=== PATIENT | male | born 1980 | race Caucasian/White ===

== ENCOUNTER 2016-05-03 02:30 | Inpatient (IN) ==
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
[2016-05-03 03:07] LABS: Bilirubin,Urine Negative (Negative); Blood,Urine Negative (Negative); Clarity,Urine Clear (Clear); Color,Urine Yellow (Yellow); Glucose,Urine (UA) Normal (Normal); Ketones,Urine Negative (Negative); Leukocyte Esterase,Urine Negative (Negative); Nitrite,Urine Negative (Negative); Protein,Urine Negative (Neg-Trace); Specific Gravity,Urine 1.008 (1.010-1.025); Urobilinogen,Urine Normal (Normal)
[2016-05-03 03:13] LABS: Amphetamine Screen,Urine Negative ng/mL (Cutoff=1000); Barbiturate Screen,Urine Negative ng/mL (Cutoff=200); Benzodiazepines Screen,Urine Positive ng/mL (Cutoff=200); Cannabinoid Screen,Urine Positive ng/mL (Cutoff = 50); Cocaine Screen,Urine Negative ng/mL (Cutoff= 300); Opiate Screen,Urine Negative ng/mL (Cutoff=300); Phencyclidine Screen,Urine Negative ng/mL (Cutoff=25)
[2016-05-03 03:28] LABS: Basophils # 0.1 K/mcL (0.0-0.2); Basophils % 0.6 %; Eosinophils # 0.5 K/mcL (0.0-0.6); Eosinophils % 4.3 %; Hematocrit 43.8 % (37.5-50.1); Hemoglobin 14.8 g/dL (12.9-16.9); Immature Granulocytes % 0.6 % (0-4); Lymphocytes # 3.3 K/mcL (0.6-4.6); Lymphocytes % 30.2 %; Mean Corpuscular HGB Conc 33.8 g/dL (31.6-35.5); Mean Corpuscular Hemoglobin 29.4 pg (28.0-33.3); Mean Corpuscular Volume 86.9 fL (83.0-100.0); Mean Platelet Volume 10.5 fL (9.4-12.4); Monocytes # 0.7 K/mcL (0.0-1.3); Monocytes % 6.8 %; Neutrophils # 6.2 K/mcL (1.6-8.9); Platelet Count 216 K/mcL (140-400); Red Blood Count 5.04 M/mcL (4.19-5.50); Red Cell Distribution Width 12.6 % (11.5-14.5); Segmented Neutrophils % 57.5 %
[2016-05-03 03:44] LABS: Acetaminophen < 1.0 mcg/mL (10-30); BUN/Creatinine Ratio 9 (6-26); Blood Urea Nitrogen 6 mg/dL (8-26); Calcium 8.9 mg/dL (8.6-10.8); Carbon Dioxide 24 mEq/L (19-29); Chloride 109 mEq/L (98-109); Ethanol < 10 mg/dL (0-10); Glucose 83 mg/dL (70-99); Osmolality,Calculated 291 (280-300); Potassium 3.8 mEq/L (3.5-4.5); Salicylate < 5.0 mg/dL (15-30); Sodium 142 mEq/L (136-145); eGFR For African Americans > 60 (> 60); eGFR For Non-African Americans > 60 (> 60)
[2016-05-03 04:03] LABS: Thyroid Stimulating Hormone 1.046 mcIU/mL (0.350-4.840)
[2016-05-03] MEDS ORDERED: Mag Hydrox/Al Hydrox/Simeth 30 ML UDC PO PRN (05:49)
[2016-05-03] MEDS ORDERED: hydrOXYzine pamoate 25 MG CAPSULE PO PRN (05:49)
[2016-05-03] MEDS ORDERED: *HR* LORazepam 2 MG/ML VIAL IM PRN (05:49)
[2016-05-03] MEDS ORDERED: Haloperidol Lactate 5 MG/ML VIAL IM PRN (05:49)
[2016-05-03] MEDS ORDERED: *HR* LORazepam 1 MG TABLET PO PRN (05:49)
[2016-05-03] MEDS ORDERED: MOM Conc 10 ML UD.LIQ PO PRN (05:49)
[2016-05-03] MEDS ORDERED: clonazePAM 0.5 MG TABLET PO PRN (05:52)
[2016-05-03] MEDS: Nicotine 21 MG PATCH.TD24 TD SCH (10:07)
[2016-05-03] MEDS: Gabapentin 300 MG CAPSULE PO SCH ×3 (10:14→21:25)
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
--- NOTE | 2016-05-03 13:07 | Electrocardiograph Report ---
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
[2016-05-04] MEDS: traZODone 50 MG TABLET PO PRN ×2 (01:10→21:20)
[2016-05-04] MEDS: Gabapentin 300 MG CAPSULE PO SCH ×3 (08:41→20:44)
[2016-05-04] MEDS: Nicotine 21 MG PATCH.TD24 TD SCH (08:42)
--- NOTE | 2016-05-04 12:47 | Psychiatry Progress Note ---
Date of Encounter: 05/04/16 Time of Encounter: 12:30 Subjective Interval history: Patient is here for follow-up. Staff report he denies suicidal ideation he participated in some groups but other times he self isolates in his room. He tolerated the new medications Cymbalta and denies any side effects and motivated to continue to take it after discharge. He denies any problem with sleep. The matter with public health social worker to review discharge planning. He is future oriented and optimistic. Review of Systems Psychiatric: Reports: depression, anxiety. Denies: suicidal ideation, visual hallucinations Objective: Exam Patient orientation: Yes Person, Yes Time, Yes Place Level of alertness: Alert Patient appearance: Appropriate, Disheveled Behavior: cooperative, nervous Psychomotor activity: Normal Eye contact: Fleeting Contact Mood description: Euthymic/stable, Anxious, Irritable Affect description: congruent with mood, full range, anxious Speech pattern: Normal rate, Normal rhythm, Normal tone, Appropriate Speech volume: Normal Thought process: Linear, Goal Oriented Thought content: No Suicidal ideation, No Homicidal ideation, No Overt delusions Perceptual disturbances: No Auditory hallucinations, No Visual hallucinations Judgment: Limited Insight: Partial Results - Vital Signs Vital Signs: Temp Pulse Resp BP Pulse Ox 97.6 F 72 16 99/69 95 05/04/16 08:43 05/04/16 08:43 05/04/16 08:43 05/04/16 08:43 05/03/16 02:32 Assessment and Plan (1) Mood disorder Current visit: Yes Status: Acute Plan: Continue hospitalization, Close observation, Suicide Precautions per unit protocol, Encourage participation in unit milieu, Group Therapy, Monitor sleep, Monitor appetite Risks, benefits, side effects, alternatives discussed w/pt: Yes Patient agreeable to treatment: Yes (2) Mild tetrahydrocannabinol (THC) abuse Current visit: Yes Status: Acute Plan: Continue hospitalization, Close observation, Suicide Precautions per unit protocol, Encourage participation in unit milieu, Group Therapy, Monitor sleep, Monitor appetite Risks, benefits, side effects, alternatives discussed w/pt: Yes Patient agreeable to treatment: Yes Consult Discharge Plan - Plan Referrals: NO,PCP [Primary Care Provider] -
[2016-05-05 08:31] VITALS: BP 108/69
[2016-05-05] MEDS: Gabapentin 300 MG CAPSULE PO SCH (08:54)
[2016-05-05] MEDS: Nicotine 21 MG PATCH.TD24 TD SCH (08:55)
--- NOTE | 2016-05-05 11:01 | Discharge Summary ---
Date of Encounter: 05/05/16 Time of Encounter: 10:59 Diagnosis - Discharge Diagnosis (1) Mood disorder Status: Acute (2) Mild tetrahydrocannabinol (THC) abuse Status: Acute Medications - Discharge Medications Prescriptions: Duloxetine [Cymbalta] 30 mg PO BID #60 capsule. Ibuprofen [Motrin] 600 mg PO Q8HR PRN #20 tablet 12/03/14 [Rx] ClonazePAM [Klonopin] 0.5 mg PO DAILY 05/03/16 [History] Gabapentin [Neurontin] 600 mg PO TID 05/03/16 [History] Sod Chloride/Hola/Mo/Pet,Wh [Lubri-Skin Lotion] 1 appl TP 4-6XD PRN 05/03/16 [ History] Duloxetine [Cymbalta] 30 mg PO BID #60 capsule. 05/05/16 [Rx] Allergies No Known Allergies Allergy (Verified 10/16/15 01:20) Provider Date of admission: 05/03/16 05:32 Primary care physician: PCP NO Discharging clinician: Varun Alberts Assessment and Plan - Patient/Caregiver Discharge Instructions Activity: resume usual activities as tolerated Diet: regular diet - Follow up Plan Follow up with: [facility] [Outside] (Office staff will contact you directly to schedule your intake appointment for counseling and case management services. You will see psychiatric prescriber, Courtney Warner, on 06/09/2016 at 10:00am. Please arrive 15 minutes early for this appointment to complete paperwork. You may contact the office regularly to check for cancellations that may allow you to be seen sooner by the psychiatric prescriber.) Functional capacity at discharge: independent ambulation Overall status at discharge: Stable Disposition: Home, Self-Care Hospital Course Hospital course: Mr. Hopper is a 35 year old male admitted from the emergency room for depression and suicidal ideation. For details of admission please see H&P On the unit patient was started on Cymbalta as an antidepressant also to help with his neuropathic pain. Patient tolerated medication and denied any side effects, he reported improved mood and improved sleep, he was not irritable and denied any suicidal ideation. He did not participate in group activities and was medication compliant. Prior to discharge he was medically stable and nonsuicidal, his discharge plans were completed by the neonatal social worker and shared with him. - Time Spent with Patient Total time spent providing and/or coordinating discharge services: Quality - Multiple Antipsychotics Patient discharged on 2 or more antipsychotic medications: No Procedures - Procedures Procedures: Medication Management, Crisis Stabilization, Supportive Therapy, Group Therapy, Psychoeducational Therapy Mental Status Exam - Mental Status Exam Patient orientation: Yes Person, Yes Time, Yes Place Level of alertness: Alert Patient appearance: Appropriate, Well Groomed Behavior: calm, cooperative Psychomotor activity: Normal Eye contact: Maintains Eye Contact Mood description: Euthymic/stable, Anxious Affect description: congruent with mood, full range, anxious Speech pattern: Normal rate, Normal rhythm, Normal tone, Appropriate Speech Volume: Normal Thought process: Linear, Goal Oriented Thought Content: No Suicidal ideation, No Homicidal ideation, No Overt delusions Perceptual Disturbances: No Auditory hallucinations, No Visual hallucinations Judgment: Limited Insight: Partial
== END 2016-05-05 12:30 | disposition home or self-care (01) | DRG 754 ==
LOC: EMEROO 02:30 → SUATTDRO 05:32 → 1ANU 05:32
PROVIDERS: ADMIT Psychiatry & Neurology Psychiatry; ATTEND Psychiatry & Neurology Psychiatry

== ENCOUNTER 2019-12-11 23:30 | Observation (INO) ==
[2019-12-12 00:18] LABS: Basophils # 0.1 K/mcL (0.0-0.2); Eosinophils # 0.4 K/mcL (0.0-0.6); Eosinophils % 4.4 %; Hematocrit 41.7 % (37.5-50.1); Hemoglobin 13.7 g/dL (12.9-16.9); Immature Granulocytes % 2.2 % (0-4); Lymphocytes % 44.2 %; Mean Corpuscular HGB Conc 32.9 g/dL (31.6-35.5); Mean Corpuscular Hemoglobin 29.3 pg (28.0-33.3); Mean Corpuscular Volume 89.1 fL (83.0-100.0); Mean Platelet Volume 9.3 fL (9.4-12.4); Monocytes % 10.6 %; Neutrophils # 3.4 K/mcL (1.6-8.9); Platelet Count 277 K/mcL (140-400); Red Blood Count 4.68 M/mcL (4.19-5.50); Red Cell Distribution Width 12.4 % (11.5-14.5); Segmented Neutrophils % 37.6 %
[2019-12-12] MEDS ORDERED: 0.9 % Sodium Chloride 1,000 ML IVC ONE (00:18)
[2019-12-12 00:20] LABS: BUN/Creatinine Ratio 18 (6-26); Blood Urea Nitrogen 18 mg/dL (6-20); Carbon Dioxide 24 mEq/L (23-29); Chloride 102 mEq/L (98-107); Creatine Kinase 227 Units/L (30-223); Glucose 290 mg/dL (70-105); Osmolality,Calculated 301 (280-300); Potassium 3.2 mEq/L (3.5-5.1); Sodium 139 mEq/L (136-145); eGFR For African Americans > 60 (> 60); eGFR For Non-African Americans > 60 (> 60)
[2019-12-12 00:21] LABS: Troponin I < 0.03 ng/mL (< 0.04)
[2019-12-12] MEDS ORDERED: Potassium Chloride Elixir 20 MEQ/15 ML UDC PO ONE (00:23)
[2019-12-12 00:56] LABS: Amphetamine Screen,Urine Positive ng/mL (Cutoff=1000); Barbiturate Screen,Urine Negative ng/mL (Cutoff=200); Benzodiazepines Screen,Urine Positive ng/mL (Cutoff=200); Cannabinoid Screen,Urine Negative ng/mL (Cutoff = 50); Cocaine Screen,Urine Negative ng/mL (Cutoff= 300); Opiate Screen,Urine Negative ng/mL (Cutoff=300); Phencyclidine Screen,Urine Negative ng/mL (Cutoff=25)
[2019-12-12 01:06] LABS: Bacteria,Urine Moderate per hpf (None-Few); Bilirubin,Urine Negative (Negative); Blood,Urine Negative (Negative); Clarity,Urine Turbid (Clear); Color,Urine Yellow (Yellow); Glucose,Urine (UA) 70 mg/dL (Normal); Ketones,Urine Negative (Negative); Leukocyte Esterase,Urine Negative (Negative); Mucus,Urine Many per lpf (None-Few); Nitrite,Urine Negative (Negative); Protein,Urine >=300 mg/dL (Neg-Trace); RBC,Urine 15-30 per hpf (0-3); Specific Gravity,Urine 1.029 (1.010-1.025); Sperm,Urine Present (None Seen); Squamous Epithelial Cell,Urine Few per hpf (None-Few)
[2019-12-12] MEDS ORDERED: 0.9 % Sodium Chloride 1,000 ML ONE (01:30)
[2019-12-12] MEDS ORDERED: Potassium Chloride 40 MEQ, Lidocaine 1% 2 ML in 0.9 % Sodium Chloride 500 ML IVPB ONE (01:48)
[2019-12-12] MEDS ORDERED: Ondansetron ODT 4 MG TAB.RAPDIS SL PRN (01:56)
[2019-12-12] MEDS ORDERED: Acetaminophen 325 MG TABLET PO PRN (01:56)
[2019-12-12 02:21] LABS: VBG HCO3 29 mEq/L (21-27); VBG PCO2 57 mmHg (41-51); VBG PH 7.31 pH Units (7.32-7.42); VBG PO2 109 mmHg (25-50)
[2019-12-12] MEDS ORDERED: 0.9 % Sodium Chloride 1,000 ML IVC SCH (03:15)
[2019-12-12] MEDS ORDERED: Naloxone 0.4 MG/ML INJ IVP PRN (03:17)
[2019-12-12 05:31] LABS: Hematocrit 36.9 % (37.5-50.1); Hemoglobin 12.1 g/dL (12.9-16.9); Mean Corpuscular HGB Conc 32.8 g/dL (31.6-35.5); Mean Corpuscular Hemoglobin 29.7 pg (28.0-33.3); Mean Corpuscular Volume 90.7 fL (83.0-100.0); Mean Platelet Volume 9.5 fL (9.4-12.4); Platelet Count 228 K/mcL (140-400); Red Blood Count 4.07 M/mcL (4.19-5.50); Red Cell Distribution Width 12.3 % (11.5-14.5)
[2019-12-12 05:58] LABS: BUN/Creatinine Ratio 25 (6-26); Blood Urea Nitrogen 17 mg/dL (6-20); Calcium 8.6 mg/dL (8.6-10.3); Carbon Dioxide 24 mEq/L (23-29); Chloride 111 mEq/L (98-107); Glucose 88 mg/dL (70-105); Magnesium 1.9 mg/dL (1.6-2.6); Osmolality,Calculated 295 (280-300); Potassium 4.2 mEq/L (3.5-5.1); Sodium 142 mEq/L (136-145); eGFR For African Americans > 60 (> 60); eGFR For Non-African Americans > 60 (> 60)
[2019-12-12] MEDS ORDERED: *HR* Enoxaparin 30 MG/0.3 ML SYRINGE SQ SCH (06:00)
[2019-12-13] MEDS ORDERED: *HR* Enoxaparin 40 MG/0.4 ML SYRINGE SQ SCH (06:00)
[2019-12-13 07:17] VITALS: BP 107/78
== END 2019-12-13 11:46 | disposition home or self-care (01) ==
LOC: 2NNU 23:30 → EMEROOARM 23:30 → 2NNU 12-12 04:10 → SUATTDRO 12-12 04:19
PROVIDERS: ADMIT Internal Medicine; ATTEND Internal Medicine